=== PATIENT | male | born 1955 ===

== ENCOUNTER 2022-02-02 06:36 | Day surgery (SDC) | payer OTHER ==
[~2022-02-02] VITALS: Ht 165.1 cm; Wt 68.9 kg
[~2022-02-02 06:36] MED LIST: DILTIAZEM 24HR180 MG PO; HYDRALAZINE HCL25 MG PO; VASOTEC20 M1 PO
== END 2022-02-02 13:30 | disposition home or self-care (01) ==
LOC: CIR.AMB 06:36
PROVIDERS: ATTEND Specialist
DX: K40.90 Unilateral inguinal hernia, without obstruction or gangrene, not specified as recurrent (principal); I10 Essential (primary) hypertension; N40.0 Benign prostatic hyperplasia without lower urinary tract symptoms